=== PATIENT | male | born 1930 | race Caucasian/White ===

== ENCOUNTER → 2017-10-04 | Outpatient (CLI) | payer MEDICARE ==
--- NOTE | 2017-10-04 16:29 | Diagnostic Imaging Report ---
PROCEDURE: Frontal and lateral views of the chest. COMPARISON: Patients [facility], , CHEST 2 VIEWS, 11/16/2015, 9:46. INDICATIONS: COUGH FINDINGS: Lines/tubes: None. Lungs: The lungs are well inflated and clear. There is no evidence of pneumonia or pulmonary edema. Pleura: There is no pleural effusion or pneumothorax. Biapical pleural scarring. Heart and mediastinum: The cardiac silhouette is mildly enlarged. Mild calcifications of the aortic arch. Bones: No acute bony abnormality. Spondylosis of the thoracic spine. IMPRESSION: 1. Mild enlargement of the cardiac silhouette. Jacky Barron M.D. Dictated by: Jacky Barron M.D. on 10/04/2017 at 16:37 Electronically approved by: Jacky Barron M.D. on 10/04/2017 at 16:37
== END ==
LOC: RAD 14:53
PROVIDERS: ATTEND Family Medicine
DX: J90 Pleural effusion, not elsewhere classified (principal)
CPT/HCPCS: 71020

== ENCOUNTER 2019-06-25 10:08 | Inpatient (IN) | payer MEDICARE ==
[~2019-06-25] VITALS: Ht 177.8 cm; Wt 83.9 kg
[~2019-06-25 10:08] MED LIST: FENOFIBRIC ACI105 MG PO; FERROUS SULFAT325 MG PO; FUROSEMIDE40 MG PO; GLIMEPIRIDE2 MG PO; HUMULIN N100 UNITS/ SC; HUMULIN R100 UNIT/2 SC; PLAVIX75 MG PO
--- OUTSIDE RECORDS SUMMARY | 2019-06-25 10:10 | XMS REPORT ---
Author [facility] Address Unknown Phone Unavailable Care Team Providers Care Print Designer Name Role Phone DALE BARRIOS Unavailable Unavailable Problems This patient has no known problems. Allergies, Adverse Reactions, Alerts This patient has no known allergies or adverse reactions. Medications This patient has no known medications. Results Test Description Test Time Test Comments Text Results Atomic Results Result Comments CHEST 2 VIEWS [place] [address] Patient Name: LES FELIPE MR #: [id number] : 1930 Age/Sex: 87/M Req #: [id number] Adm Physician: Ordered by: SOPHIE RUSSO, DALE Webb MD Report #: [id number] Location: RAD Room/Bed: Procedure: [id number] DX/CHEST 2 VIEWS Exam Date: 10/04/17 Exam Time: 1500 REPORT STATUS: Signed PROCEDURE: Frontal and lateral views of the chest. COMPARISON: [facility], DX, CHEST 2 VIEWS, 11/16/2015, 9:46. INDICATIONS: COUGH FINDINGS: Lines/tubes: None. Lungs: The lungs are well inflated and clear. There is no evidence of pneumonia or pulmonary edema. Pleura: There is no pleural effusion or pneumothorax. Biapical pleural scarring. Heart and mediastinum: The cardiac silhouette is mildly enlarged. Mild calcifications of the aortic arch. Bones: No acute bony abnormality. Spondylosis of the thoracic spine. IMPRESSION: 1. Mild enlargement of the cardiac silhouette. Jacky Jenkins M.D. Dictated by: Jacky Jenkins M.D. on 10/04/2017 at 16:37 Electronically approved by: Jacky Jenkins M.D. on 10/04/2017 at 16:37 Dictated By: DUDLEY JENKINS MD, MD 36 Transcribed By: RAHUL on 10/04/177 COPY TO: DALE BARRIOS
[2019-06-25 10:29] LABS: BASOPHILS % 0.3 % (0.0-1.0); EOSINOPHILS % 0.6 % (0.0-6.0); HEMATOCRIT 22.6 % (38.2-49.6); HEMOGLOBIN 7.2 g/dL (14.0-18.0); LYMPHOCYTES # (AUTO) 0.2 (1.0-3.2); LYMPHOCYTES % 6.2 % (18.0-39.1); MEAN CORPUSCULAR HEMOGLOBIN 32.9 pg (28-32); MEAN CORPUSCULAR HGB CONC 31.9 g/dL (31-35); MEAN CORPUSCULAR VOLUME 103.2 fL (81-99); MONOCYTES # (AUTO) 0.1 (0.2-0.8); MONOCYTES % 3.8 % (4.4-11.3); NEUTROPHILS % 88.5 % (38.7-80.0); PLATELET COUNT 312 x10e3/uL (140-360); RED BLOOD COUNT 2.19 x10e6/uL (4.3-5.7); RED CELL DISTRIBUTION WIDTH 18.4 % (11.7-14.4)
[2019-06-25 10:51] LABS: ALBUMIN 2.6 g/dL (3.5-5.0); ALBUMIN/GLOBULIN RATIO 0.7 (0.8-2.0); CALCIUM 8.6 mg/dL (8.4-10.2); CREATININE, SERUM 2.35 mg/dL (0.72-1.25)
[2019-06-25 11:10] LABS: INR 1.15; PROTHROMBIN TIME 15.3 seconds (11.9-14.5)
[2019-06-25 12:00] VITALS: BP 117/69
[2019-06-25] MEDS ORDERED: ACETAMINOPHEN 325 MG TAB PO PRN (13:00)
[2019-06-25] MEDS ORDERED: ONDANSETRON HCL INJ 2MG/ML 2ML 2 MG/ML VIAL IV PRN (13:00)
[2019-06-25] MEDS ORDERED: DEXTROSE 50% SYRINGE 50 ML IV PRN (13:30)
--- NOTE | 2019-06-25 13:38 | Diagnostic Imaging Report ---
EXAMINATION: CHEST SINGLE (PORTABLE) INDICATION: Dysphagia COMPARISON: None FINDINGS: LINES/TUBES:None LUNGS:The lungs are well-inflated. No focal consolidation or pulmonary edema. PLEURA:No pleural effusion or pneumothorax. MEDIASTINUM:The cardiomediastinal silhouette is mildly enlarged. Atherosclerotic calcifications of the thoracic aorta. BONES/SOFT TISSUES:No acute osseous injury. ABDOMEN:No free air under the diaphragm. IMPRESSION: No focal pneumonia or pulmonary edema. Mild cardiomegaly. Signed by: Omer Nicolas MD on 06/25/2019 1:34 PM
--- NOTE | 2019-06-25 14:06 | Diagnostic Imaging Report ---
EXAM: CT Chest, Abdomen and Pelvis WITHOUT intravenous contrast INDICATION: Dysphagia, anemia COMPARISON: Chest radiograph of earlier the same day TECHNIQUE: The chest, abdomen and pelvis were scanned utilizing a multidetector helical scanner from the thoracic inlet to the pubic symphysis without administration of IV contrast. Coronal and sagittal reformations were obtained. IV CONTRAST: None ORAL CONTRAST: Water COMPLICATIONS: None RADIATION DOSE: Total DLP: 880.6 mGy*cm Dose modulation, iterative reconstruction, and/or weight based adjustment of the mA/kV was utilized to reduce the radiation dose to as low as reasonably achievable. FINDINGS: LINES/ TUBES: None. LUNGS AND AIRWAYS: The central airways are patent. No focal consolidation or pulmonary edema. Minimal biapical pleural parenchymal thickening/scarring. No suspicious pulmonary nodules. PLEURA: Trace left pleural effusion. No pneumothorax. HEART AND MEDIASTINUM: The thyroid gland is normal. No supraclavicular lymphadenopathy. An enlarged AP window lymph node measures up to 2.5 x 1.6 cm. No hilar lymphadenopathy. No axillary or internal mammary lymphadenopathy. The heart is not enlarged. No pericardial effusion. Diffuse atherosclerotic calcifications involve the coronary arteries, aorta and great vessels. HEPATOBILIARY: The centimeter left hepatic hypodensity is nonspecific but likely represents a cyst. Several scattered punctate calcified granulomas. No other focal liver lesions. 2.2 cm calcified gallstone. No CT evidence of cholecystitis. SPLEEN: No splenomegaly. PANCREAS: No focal masses or ductal dilatation. ADRENALS: No adrenal nodules. KIDNEYS/URETERS: 3 mm right upper pole nonobstructive renal calculus. No left calculi. No hydronephrosis. 1.7 cm exophytic right midpole hypodense structure most likely represents a cyst. Mild nonspecific bilateral perirenal soft tissue stranding. PELVIC ORGANS/BLADDER: Decompressed bladder. Coarse calcifications of the nonenlarged prostate. PERITONEUM / RETROPERITONEUM: No free air or fluid. LYMPH NODES: Prominent subcentimeter para-aortic lymph nodes do not meet size criteria for lymphadenopathy. VESSELS: Diffuse atherosclerotic calcifications involve the nonaneurysmal abdominal aorta and major branches. GI TRACT: Severe sigmoid diverticulosis and moderate ascending colon diverticulosis. Mild descending colon diverticulosis. No CT evidence of diverticulitis. BONES AND SOFT TISSUES: Small fat-containing umbilical hernia. Small bilateral right greater than left fat-containing inguinal hernias. Diffuse muscle atrophy. Degenerative changes of the visualized spine. No acute osseous injury. No suspicious lytic or blastic lesions. IMPRESSION: Enlarged AP window lymph node measuring up to 2.5 x 1.6 cm. Retroperitoneal periaortic lymph nodes are prominent but do not meet size criteria for lymphadenopathy. Diffuse atherosclerotic arterial calcifications including of the coronary arteries. Cholelithiasis without CT evidence of cholecystitis. Extensive diverticulosis including right colon diverticulosis without CT evidence of diverticulitis. Signed by: Omer Nicolas MD on 06/25/2019 2:03 PM
[2019-06-25 14:37] VITALS: BP 117/69
[2019-06-25] MEDS ORDERED: SODIUM CHLORIDE 0.9% 250ML 250 ML IV ONE (15:00)
[2019-06-25 16:00] VITALS: BP 116/67
[2019-06-25] MEDS: FAMOTIDINE 20 MG/2 ML VIAL IV SCH (16:34)
[2019-06-25] MEDS: FUROSEMIDE INJ 10 MG/ML 2 ML VIAL IV SCH (16:34)
[2019-06-25 16:53] LABS: HEMATOCRIT 22.1 % (38.2-49.6)
[2019-06-25 17:01] LABS: HEMOGLOBIN 6.9 g/dL (14.0-18.0)
[2019-06-25] MEDS: INSULIN REGULAR, HUMAN 100 UNIT/1 ML 3ML VIAL SQ SCH ×2 (17:04→21:15)
--- NOTE | 2019-06-25 18:30 | NUR ---
1 unit of leuko-reduced RBC's started infusing at 1830.
--- NOTE | 2019-06-25 18:44 | History and Physical ---
PRIMARY CARE PHYSICIAN: Dr. Jaycob Parker. CHIEF COMPLAINT: Anemia. CONSULTING PHYSICIANS: Dr. Cuevas with GI, Dr. Nadine Franco with Cardiology. HISTORY OF PRESENT ILLNESS: This is an 89-year-old male with past medical history of hypertension, diabetes, high cholesterol, CKD 4, lymphedema, and CAD, presented to the ER after having being to his primary care doctor's office yesterday for blood work, which showed a hemoglobin of 6.9, so he was instructed to go to the ER for blood transfusion and further workup. Per patient, he was feeling shortness of breath with exertion, generalized weakness and dizziness for the past few weeks. He denies any nausea, vomiting, chest pain, melena, hematemesis. He reports having dysphagia, unable to swallow his pills for the past two months now. He was referred to Dr. Cuevas for endoscopy, which was supposed to be done tomorrow. Currently, he denies any pain, shortness of breath or dizziness. PAST MEDICAL HISTORY: 1. Hypertension. 2. Diabetes type 2. 3. High cholesterol. 4. CKD 4. 5. Lymphedema with the right greater than the left. 6. CAD, status post three stents. SURGICAL HISTORY: 1. Hernia repair. 2. Spinal surgery. 3. Bilateral hand for carpal tunnel. 4. Cardiac stents x3. 5. Cataract for both eyes. 6. Tonsillectomy as a child. FAMILY MEDICAL HISTORY: Mother of pneumonia at old age and father a year later at age of 86 in his sleep. SOCIAL HISTORY: Denies tobacco use or illicit drug use. He reports was drinking vodka daily up until two months ago. ALLERGIES: NO KNOWN ALLERGIES. REVIEW OF SYSTEMS: GENERAL: No fever. HEENT: No trauma to the head. No mouth sores. LUNGS: No shortness of breath or cough. CARDIOVASCULAR: No palpitations or chest pain. GI: Difficulty swallowing. No nausea, vomiting, or melena. NEURO: Dizziness with ambulation. MUSCULOSKELETAL: Bilateral lower extremity edema and blisters. SKIN: Lower extremity mild redness and oozing from lymphedema. PHYSICAL ASSESSMENT: VITAL SIGNS: Temperature is 98.5, pulse is 93, respirations 18, blood pressure is 98/57, and pulse ox is 98% on room air. GENERAL: No acute distress. HEENT: Normocephalic, atraumatic. PERRLA. LUNGS: Clear to auscultation. CARDIOVASCULAR: Regular rate and rhythm. GI: Obese, soft and nontender. NEURO: Alert, awake, oriented x3. MUSCULOSKELETAL: Moves all extremities. Bilateral lower extremity edema noted to lymphedema. SKIN: He has right heel blister cleared likely due to lymphedema. PSYCH: Normal affect. LABORATORY DATA: WBC is 3.39, hemoglobin is 7.2, hematocrit is 22.6, MCV is 103.2, and platelet is 312. Sodium is 133, potassium is 4.0, BUN is 55, creatinine is 2.35, estimated GFR is 26, glucose is 260. PT is 15.3, INR is 1.15, APTT is 33.1. IMPRESSION AND PLAN: 1. Symptomatic anemia, was 6.9 at his doctor's office, now 7.2. He reported shortness of breath and dizziness with ambulation. We will transfuse 1 unit of PRBCs. GI has been consulted and plans EGD tomorrow. 2. Hypertension, currently hypotensive, likely due to anemia. We will hold his blood pressure medications for now. 3. Diabetes type 2. We will give sliding scale insulin as needed. 4. Chronic kidney disease 4. Creatinine is 2.35. We will continue to monitor closely. 5. Coronary artery disease. We will continue home medications. We will hold anticoagulation due to anemia. 6. High cholesterol. We will resume statin tomorrow. 7. Lymphedema and oozing liquid. We will continue Lasix IV b.i.d. 8. History of alcohol use. We will continue since his last use. We will monitor for now. We will keep Pepcid b.i.d. IV. 9. Deep vein thrombosis prophylaxis. We will hold anticoagulation due to anemia. We will obtain a chest x-ray, CT chest and abdomen and pelvis to rule out malignancy. Echo is also pending for cardiac workup. The patient has been cleared from Cardiology for EGD tomorrow. Dictated by BEN Hernandez Katching Jackson Vela MD MY/MODL /[id number]
[2019-06-25] MEDS ORDERED: FUROSEMIDE INJ 10 MG/ML 4 ML VIAL IV ONE (19:15)
--- NOTE | 2019-06-25 19:19 | NUR ---
Received bedside report from day nurse. Patient resting in bed, alert and oriented, currently receiving 1 unit of blood. Stable vital signs, no s/s of adverse effects at this time. All safety measures in place. Will continue to monitor.
--- NOTE | 2019-06-25 19:55 | NUR ---
Per Dr. Vela's notes and day nurse report, patient has been cleared by cardiology for EGD tomorrow. No orders for EGD have been noted. Paged Dr. Cuevas to confirm order, currently awaiting return call. Patient doing well with blood transfusion, no adverse effects noted. All safety measures in place. Will continue to monitor.
--- NOTE | 2019-06-25 20:11 | NUR ---
Received orders from Dr. Cuevas for EGD procedure tomorrow.
[2019-06-25 20:17] VITALS: BP 124/68
--- NOTE | 2019-06-25 21:30 | Consultation ---
DATE OF CONSULTATION: 06/25/2019 CONSULTING PHYSICIAN: Marisa Balbuena M.D. REASON FOR CONSULT: Unexplained anemia, GI source needs to be ruled out. HISTORY OF PRESENTING ILLNESS: An 89-year-old very pleasant white male, who has a very good performance status. He has a history of type 2 diabetes (insulin-dependent), hyperlipidemia, and coronary artery disease, status post PCI with coronary stents, on Plavix only. He has a bilateral lower extremity lymphedema. He also has a chronic anemia. For the last couple of months, he has been having trouble swallowing solid food. Solid food often gets stuck down in the lower esophagus. He was seen by Dr. Cuevas (my associate)/video surveillance technician in his office couple of days ago. The patient is already scheduled to get upper endoscopy with possible esophageal dilation tomorrow. However, preprocedure blood workup revealed significant anemia with a hemoglobin of 7.2. Baseline hemoglobin in March was 10. No gross GI bleeding is reported by the patient. He has never noticed any dark stool. No episode of any hematemesis or hematochezia. Due to low hemoglobin, he was contacted by his primary service to get admitted in the hospital for blood transfusion. He therefore came to the emergency room yesterday. He is now on the floor. The patient otherwise denies any lower GI symptoms. REVIEW OF SYSTEMS: Twelve-point system reviewed, symptomatology is limited as per HPI. PAST MEDICAL HISTORY: Type 2 diabetes, bilateral lower extremity lymphedema, coronary artery disease, hyperlipidemia, osteoarthritis, and chronic anemia. PAST SURGICAL HISTORY: Bilateral carpal tunnel repair, inguinal hernia repair, back surgery, tonsillectomy, and cardiac catheterization with coronary stents. FAMILY HISTORY: Noncontributory given his advanced age. SOCIAL HISTORY: No smoking, alcohol, or any illicit drug use. HOME MEDICATIONS: 1. Clopidogrel. 2. Fenofibrate. 3. Ferrous sulfate. 4. Furosemide. 5. Glimepiride, regular insulin. ALLERGIES: NO KNOWN DRUG ALLERGIES. PHYSICAL EXAMINATION: VITAL SIGNS: Temperature 96.2, pulse 85, respirations 20, blood pressure 116/67, and oxygen saturation 98% on room air. GENERAL: Elderly, frail, but not in any acute distress. Gross pallor. HEENT: Moist mucous membranes. Anicteric sclerae. CVS: S1 and S2 regular with a 3/6 flow murmur at the apex. LUNGS: Bilaterally grossly clear. ABDOMEN: Soft, protuberant belly, nondistended, and nontender. No palpable mass or hernia. Positive bowel sounds. EXTREMITIES: 3+ pitting bilateral leg edema. LABORATORY DATA: WBC 3.39, hemoglobin 7.2, repeat hemoglobin 6.9; hematocrit 22.6, MCV 103.2, and platelet count 312. Sodium 133, potassium 4.0, chloride 98, bicarb 24, BUN 55, and creatinine 2.35. Baseline creatinine 1.24, which was in 2010. CT of the abdomen and pelvis without contrast showed diffuse atherosclerotic disease, cholelithiasis, extensive colonic diverticulosis, enlarged AP window lymph node measuring up to 2.5 x 1.6 cm. Retroperitoneal periaortic lymph nodes are prominent, but do not meet size criteria for lymphadenopathy. IMPRESSION: 1. Anemia of unclear etiology. As per the patient's family, baseline hemoglobin was 10 in March. It dropped down to 6.9. No gross gastrointestinal bleeding. 2. Intermittently persistent nonprogressive esophageal dysphagia to solid. PLAN: Anemia workup that should include checking stool for Hemoccult blood, anemia profile. Transfuse packed red blood cells as necessary to keep the hemoglobin at least above seven. Cardiology also evaluated the patient and has cleared for the procedure. Therefore, if the hemoglobin remains above seven, the patient will undergo EGD plus-minus esophageal dilation as scheduled. Aram Ulloa MD SA/LARA /[id number]
[2019-06-25 21:31] VITALS: BP 124/68
--- NOTE | 2019-06-25 22:10 | Consultation ---
DATE OF CONSULTATION: Cardiac Consultation REASON FOR CONSULTATION: Cardiac evaluation. HISTORY OF PRESENT ILLNESS: An 89-year-old gentleman, who is known with coronary artery disease status post PCI of the right coronary artery in 2003, hypercholesterolemia, hypertension, diabetes mellitus, chronic renal insufficiency stage 3 to stage 4, chronic leg swelling of the lower extremities, followed by [facility] and he used to come to see us. Last time seen in our office approximately 3 years ago. The patient maintained on medical therapy. The patient for the last few months having problem with swallowing. In fact, he is unable to get any solid food at all. He just takes the juice of the solid food and then he needs to spit it because it stuck in his esophagus. He lost weight. He noted more swelling of his lower extremities and he is developing abdominal distention. He is having easy fatigability and he is becoming quite debilitated. He denied having any chest pain. He was seen by Dr. Cuevas. His hemoglobin was at 6. He is advised to come to the emergency room. In the emergency room, his hemoglobin was at 7. His BUN and creatinine are at 55 and 2.4. He was having abdominal distention and marked swelling of the lower extremities. He does have shortness of breath. He denied having any chest pain. The patient is considered for EGD, colonoscopy possibly and he needs to have cardiac evaluation. The patient's activities are limited. In fact, he is going down for the last few months. He is barely can move around. He is having swelling of the lower extremities, fatigability, shortness of breath on exertion, weight loss, inability to eat solid food progressively worse. The food "got stuck in his esophagus." He does have easy fatigability, insomnia, and sleeplessness night at time. "I am not doing well." HOME MEDICATIONS: Include Plavix 75 mg a day, Fenofibrate 135 mg a day, iron sulfate one tablet a day, Lasix 40 mg a day, and insulin 20 units at bedtime. ALLERGIES: NONE. PAST MEDICAL HISTORY: 1. Coronary artery disease, status post PCI in 2003, Cypher stent. 2. Hypertension. 3. Hypercholesterolemia. 4. Diabetes mellitus with severe end-organ damage. 5. Peripheral arterial vascular disease. 6. Chronic swelling of the lower extremities. 7. Chronic renal insufficiency. 8. Left inguinal hernia surgery. 9. Tonsillectomy. 10. Back surgery. 11. Bilateral cataract surgery. 12. Carpal tunnel surgery. SOCIAL HISTORY: . He is a nonsmoker, however, he used to drink alcohol, now he denied drinking any alcohol. FAMILY HISTORY: Father at age 86, passed in his sleep. Mother at age 86 of old age. Two siblings and three children, one son of overdose. REVIEW OF SYSTEMS: GENERAL: Poor general status of health, weight gain of fluid, poor appetite. No fever. No chills. HEENT: Decreased hearing. PULMONARY: Easy fatigability, shortness of breath on minimal exertion. CARDIAC: No angina, but easy fatigability and shortness of breath on exertion, legs swelling as described above. GI: Inability to swallow any solid food for the last few months, progressively worse. He denied having any hematemesis or any melena. He admits to distended abdomen and bowel movement difficulty. HEMATOLOGY: No easy bruising or bleeding. : No hematuria. No dysuria. MUSCULOSKELETAL: Bilateral back pain and lower extremities. Marked edema of the lower extremities. NEUROLOGIC: No localized deficit, but severe weakness. PHYSICAL EXAMINATION: VITAL SIGNS: Height of 5 feet 10 inches and weight of 182 pounds. Blood pressure 130/60, heart rate of 60, and respiratory rate of 18. HEENT: Pupils are reactive. It was noted pale conjunctiva. NECK: No elevation of jugular venous pulsation. CHEST: Decreased air entry. HEART: PMI 5th left intercostal space. Normal first and second heart sounds. ABDOMEN: Distended. Hepatomegaly is noted. EXTREMITIES: Marked edema of the lower extremities. LABORATORY DATA: White blood cell count of 3.4, hemoglobin 7.2, hematocrit 23%, and platelet count of 312. BUN of 55, creatinine of 2.4, sodium of 133, potassium of 4, and glucose of 260. IMPRESSION AND PLAN: 1. Severe anemia. 2. Difficulty swallowing of solid, rule out Esophageal mortality problems or cancer. 3. Marked edema with distended abdomen, possible liver disease, possible malignancy with metastasis. 4. Coronary artery disease. 5. Status post prior PCI. 6. Congestive heart failure. 7. Chronic kidney disease. 8. Hypercholesterolemia. 9. Diabetes mellitus with severe end-organ damage including renal and possible nephropathy/ Protein urea. From a cardiac point of view, I discussed the patient with his and his daughter. He is cleared for EGD. Because of the patient's symptoms, we need to figure out what the etiology for that and this now seems to be priority. From a cardiac point of view, we will do an echocardiogram. We will observe his volume status. We will check chest x-ray. We will do an echocardiogram. We will check urine for protein. We will check his labs tomorrow. We will check BMP on him. We will follow the patient's progression with you. This was lengthy visit. The patient is seen and evaluated in ER. Questions answered. Prognosis seems to be poor. MD CLOVER Mcnally/LARA /[id number] MTDD
--- NOTE | 2019-06-25 22:15 | NUR ---
Transfusion of 1 unit of blood completed @ 2114. No adverse effects noted. All safety measures in place. Will continue to monitor.
[2019-06-25 23:20] VITALS: BP 104/56
[2019-06-26] VITALS (8 sets, daily range): BP systolic 97–125; BP diastolic 57–91
--- NOTE | 2019-06-26 06:46 | NUR ---
Gave bedside report to day nurse. Patient awake and sitting up in bed, no s/s of distress or c/o pain at this time. All safety measures in place.
--- NOTE | 2019-06-26 07:00 | NUR ---
RECEIVED AM REPORT AND MORNING ROUNDS DONE. PT IS ALERT RESTING IN BED, NO S/S OF DISTRESS. PT IS NPO FOR PLANNED EGD THIS MORNING. CALL LIGHT IS WITHIN REACH AND INSTRUCTED PT TO CALL NURSE FOR HELP.
[2019-06-26 07:10] LABS: BASOPHILS % 0.6 % (0.0-1.0); EOSINOPHILS % 0.3 % (0.0-6.0); HEMATOCRIT 26.2 % (38.2-49.6); HEMOGLOBIN 8.2 g/dL (14.0-18.0); LYMPHOCYTES # (AUTO) 0.3 (1.0-3.2); LYMPHOCYTES % 8.4 % (18.0-39.1); MEAN CORPUSCULAR HEMOGLOBIN 31.3 pg (28-32); MEAN CORPUSCULAR HGB CONC 31.3 g/dL (31-35); MONOCYTES # (AUTO) 0.1 (0.2-0.8); MONOCYTES % 4.2 % (4.4-11.3); NEUTROPHILS # (AUTO) 2.7 (2.1-6.9); NEUTROPHILS % 86.2 % (38.7-80.0); PLATELET COUNT 317 x10e3/uL (140-360); RED BLOOD COUNT 2.62 x10e6/uL (4.3-5.7)
[2019-06-26 07:28] LABS: ALBUMIN 2.7 g/dL (3.5-5.0); ALBUMIN/GLOBULIN RATIO 0.7 (0.8-2.0); ANION GAP 16.5 mmol/L (8-16); CALCIUM 8.7 mg/dL (8.4-10.2); CREATININE, SERUM 2.22 mg/dL (0.72-1.25); POTASSIUM 3.5 mmol/L (3.5-5.1)
[2019-06-26] MEDS: INSULIN REGULAR, HUMAN 100 UNIT/1 ML 3ML VIAL SQ SCH ×4 (07:30→21:00)
--- NOTE | 2019-06-26 07:45 | NUR ---
LAB REPORTED GLUCOSE LEVEL OF 57. ADMINISTERED 1 AMP OF DEXTROSE 50% AT 0745. AT 0805 BLOOD GLUCOSE WAS RECHECKED AT BEDSIDE AND IT WAS 209
[2019-06-26] MEDS: FUROSEMIDE INJ 10 MG/ML 2 ML VIAL IV SCH ×2 (07:56→18:50)
[2019-06-26] MEDS: FAMOTIDINE 20 MG/2 ML VIAL IV SCH ×2 (07:56→17:16)
[2019-06-26 08:00] LABS: FERRITIN 53.99 ng/mL (21.81-274.66)
[2019-06-26 13:09] LABS: FOLATE 6.3 ng/mL (7.0-15.4)
--- NOTE | 2019-06-26 15:14 | NUR ---
WOUNDCARE CONSULT FOR 89 YO M HX OF DIABETES ,ANIEMIA , LE EDEMA AND REOCCURRING WOUNDS PRATIMA 19 WITH CONSERVATIVE PUP ON VISCO MATTRESS LABS: WBC-3 HGB- 8.2 ASSESSMENT: SKIN ASSESSMENT PERFORMED WOUNDS DOCUMENTED ON WOUND FLOW SHEET RT HEEL PRESENTS WITH DARK BLISTER REPORTED BY PATIENT AND FAMILY SECONDARY TO BUMPING HEEL AND LATER USAGE OF COMPRESSION SOCKS THAT MAY HAVE FIT TOO TIGHT SURROUNDING SKIN DRY AND INTACT PT ALSO PRESENTS WITH BILATERAL LE EDEMA WITH WEEPING OF SEROUS DRAINAGE PT ALSO HAS STAGE 2 ULCERATION RIGHT BUTTOCK THAT REPORTS HAS BEEN THERE FOR A COUPLE OF WEEKS SURROUNDING TISSUE PINK AND BLANCHABLE PT AND FAMILY EDUCATED ON NEED FOR TURNING AND OFFLOADING RECOMMENDATIONS: NURSING TO CONTINUE TO PROTECT AND OFFLOAD PATIENT AND FOLLOW PUP PROTOCOL NURSING TO MAINTAIN PT ON ALTERNATING PRESSURE MATTRESS POTENTIAL FOR PATIENT TO BENEFIT FROM NICO EVALUATION RELATED TO CHRONIC EDEMA AND WEEPING WITH SPONTANEOUS OPEN AREAS NURSING TO USE PILLOW SUSPENSION OF HEELS WHILE IN BED NURSING TO ENCOURAGE PATIENT OUT OF BED FOR MEALS AND MUCH TOLERATED NURSING TO APPLY VENELEX OINTMENT DAILY TO PATIENT RT HEEL BLISTER COVER WITH ALLEVYN FOAM FOR SHEER PROTECTION NURSING TO APPLY VENELEX OINTMENT DAILY TO PATIENT RT BUTTOCK STAGE 2 ULCER COVER WITH ALLEVYN FOAM FOR SHEER PROTECTION Addendum: 06/26/19 at 1536 by Joni Guadalupe RN Amended: Links added.
[2019-06-26] MEDS ORDERED: CYANOCOBALAMIN INJ 1,000 MCG/ML VIAL IM ONE (16:45)
[2019-06-26] MEDS: CARVEDILOL 3.125 MG TAB PO SCH (17:17)
[2019-06-26] MEDS ORDERED: IRON SUCROSE 100 MG in SODIUM CHLORIDE 0.9% 100 ML 100 ML IV ONE (17:30)
--- NOTE | 2019-06-26 18:27 | Progress Note ---
DATE: CHIEF COMPLAINT: Anemia and dysphagia. SUBJECTIVE: The patient underwent EGD this morning, which showed mid esophagus ulcer, large. Biopsies taken, tolerating pureed diet post EGD. Hemoglobin is improved to 8.2 today post transfusion of 1 unit of PRBC. No shortness of breath, fever, or chills. PHYSICAL EXAMINATION: VITAL SIGNS: Temperature 97.8, pulse is 92, respirations 19, blood pressure 107/81, pulse ox is 99% on room air. GENERAL: No acute distress. HEENT: Normocephalic, atraumatic. LUNGS: Clear to auscultation. CARDIOVASCULAR: Normal rate and rhythm. ABDOMEN: Soft and nontender. Active bowel sounds. NEURO: Alert, awake, oriented x3. MUSCULOSKELETAL: Bilateral lower extremity edema. SKIN: Has a blister on the right heel due to lymphedema. PSYCH: Normal affect. LABORATORY DATA: WBC 3.09, hemoglobin 8.2, hematocrit 26.2, platelets 317. Sodium 138, potassium 3.5, creatinine 2.22, estimated GFR is 28. Iron is 51, B12 is 299, folate is 6.3. IMAGING: CT abdomen and pelvis showed enlarged lymph nodes measuring about 2.5 x 1.6 cm, cholelithiasis without cholecystitis and extensive diverticulosis without acute diverticulitis. Chest x-ray is unremarkable. IMPRESSION AND PLAN: 1. Symptomatic anemia due to GI bleed, status post 1 unit of PRBC transfusion. Hemoglobin is now 8.2. GI has been consulted and underwent EGD, which showed mid esophagus ulcer, large, biopsied. Recommend sucralfate before meals and at bedtime. 2. Hypertension. We will hold his blood pressure medications for now and treat as needed. 3. Diabetes, type 2. We will check his hemoglobin A1c and treat as needed with sliding scale insulin. 4. Iron deficiency anemia. We will give Venofer. 5. Chronic kidney disease, stage 4. Creatinine 2.2. We will continue to monitor closely. Lasix changed to IV b.i.d. 6. History of coronary artery disease. We will continue home medications. We will hold anticoagulation due to anemia until cleared by GI. 7. High cholesterol. We can resume statin. 8. Lymphedema. We will continue with Lasix. Wound Care has been consulted for the blister in the right heel. 9. History of alcohol use, has been 2 months since his last use. We will continue with Pepcid. 10. Deep vein thrombosis prophylaxis. We will hold chemical anticoagulation due to anemia. PLAN: We will give Venofer IV x1 today and vitamin B12. We will continue to monitor H and H closely and transfuse if hemoglobin is less than 7. Anticipate discharge home tomorrow if hemoglobin remains stable. Dictated by Jacki Tolliver, BEN Marianne Vlea MD MY/MODL /[id number]
[2019-06-26] MEDS ORDERED: PROPOFOL IV EMULSION 10 MG/ML 50 ML VIAL ONE (18:40)
[2019-06-26] MEDS: SUCRALFATE 1 GM/10 ML SUSP PO SCH (20:22)
[2019-06-27 04:15] VITALS: BP 114/75
[2019-06-27 05:59] LABS: BASOPHILS % 0.9 % (0.0-1.0); EOSINOPHILS % 0.9 % (0.0-6.0); HEMATOCRIT 25.6 % (38.2-49.6); HEMOGLOBIN 8.1 g/dL (14.0-18.0); LYMPHOCYTES # (AUTO) 0.3 (1.0-3.2); LYMPHOCYTES % 12.4 % (18.0-39.1); MEAN CORPUSCULAR HEMOGLOBIN 31.8 pg (28-32); MEAN CORPUSCULAR HGB CONC 31.6 g/dL (31-35); MEAN CORPUSCULAR VOLUME 100.4 fL (81-99); MONOCYTES # (AUTO) 0.1 (0.2-0.8); MONOCYTES % 4.3 % (4.4-11.3); NEUTROPHILS # (AUTO) 1.9 (2.1-6.9); NEUTROPHILS % 81.1 % (38.7-80.0); PLATELET COUNT 304 x10e3/uL (140-360); RED BLOOD COUNT 2.55 x10e6/uL (4.3-5.7); RED CELL DISTRIBUTION WIDTH 19.9 % (11.7-14.4)
[2019-06-27 06:18] LABS: ALBUMIN 2.4 g/dL (3.5-5.0); ALBUMIN/GLOBULIN RATIO 0.6 (0.8-2.0); ANION GAP 16.3 mmol/L (8-16); CALCIUM 8.4 mg/dL (8.4-10.2); CHOL/HDL RATIO 4.5 (3.9-4.7); CREATININE, SERUM 2.34 mg/dL (0.72-1.25); POTASSIUM 4.3 mmol/L (3.5-5.1)
[2019-06-27 06:30] LABS: THYROID STIMULATING HORMONE 1.005 uIU/mL (0.350-4.940)
--- NOTE | 2019-06-27 07:00 | NUR ---
received am report and morning rounds done. pt is alert sitting up on the edge of bed, no s/s of distress. call light within reach and instructed pt to call nurse for help
[2019-06-27] MEDS: INSULIN REGULAR, HUMAN 100 UNIT/1 ML 3ML VIAL SQ SCH ×2 (07:30→12:00)
[2019-06-27] MEDS: SUCRALFATE 1 GM/10 ML SUSP PO SCH ×2 (07:52→12:07)
[2019-06-27 08:00] VITALS: BP 115/60
[2019-06-27] MEDS: CARVEDILOL 3.125 MG TAB PO SCH (08:59)
[2019-06-27] MEDS: FAMOTIDINE 20 MG/2 ML VIAL IV SCH (08:59)
[2019-06-27] MEDS: FUROSEMIDE INJ 10 MG/ML 2 ML VIAL IV SCH (08:59)
[2019-06-27] MEDS ORDERED: BALSAM PERU/CASTOR OIL 60 GM OINT...G. TP SCH (09:00)
[2019-06-27 09:44] VITALS: BP 115/60
[2019-06-27 11:55] VITALS: BP 101/55
--- NOTE | 2019-06-27 13:06 | NUR ---
Nutrition Screen Note RD Recommendation for Physician: -Continue current therapeutic diet per MD, texture per speech. -Recommend AUTOM[employer]IC [employer]SM[employer] MECH[employer]IC eval 2/2 pt reporting chewing or swallowing issues and needing a pureed diet. Plan of Care: RD following, monitoring for tolerance and adequacy. Education provided. Glucerna BID for the pt to try. Nutrition reason for involvement: Consult-anemia education Primary Diagnose(s): Anemia PMH: hypertension, diabetes, high cholesterol, CKD 4, lymphedema, and CAD Ht: 70 in Wt: 185 lb BMI: 26.5kg/m2 IBW: [address] Assessment: (06/27) 89 YOM admitted for anemia with PMH listed above. Pt was seen with his and son at his bedside. Received consult for anemia education. Spoke with nurse who reports the MD wanted the RD to give education regarding high iron and high protein foods as well as acute kidney injury education. Provided education on those subjects as well as T2DM to the pt and family. Family verbalized understanding and reported they will help make healthy meals with high iron foods for the pt. Pt is currently on a pureed diet, will recommend AUTOMATIC [employer]SMISS[employer] MECH[employer]IC consult to ensure the pt is consuming the correct consistency of food, the pts family reported he is only on this temporarily d/t his ulcers in his esophagus. Pt had EGD yesterday which showed mid esophagus ulcer, large. Per progress note the pt is tolerating the pureed diet. Recommended the pt try Glucerna supplement at home. Per IM note- d/c home possibly today. Chart reviewed. Labs and meds reviewed. Will continue to monitor. Current Diet: cardiac, 1800 ADA carb controlled diet, pureed Malnutrition Evaluation (06/27) The patient does not meet criteria for a specified degree of malnutrition at this time. Will re-evaluate at follow-up as appropriate. Diet Education Needs Assessment: Diet education indicated, pt and family accepted. Learner(s): pt and family Barriers: none Cultural/Language Modifications: none Readiness: acceptance Method: discussion, handout, teach back Topics: T2DM diet, meal planning, food label, low Na diet, high iron foods, protein foods Understanding/Compliance: verbalized understanding, anticipate good compliance Nutrition Care Level: low Signed: Pattie Vee, RD, LD
--- NOTE | 2019-06-27 13:15 | NUR ---
IMM letter delivered and explained to pt and . They verbalized understanding. Signed copy placed in chart. Copy to pt's .
[2019-06-27] MEDS ORDERED: SUCRALFATE1 G/10 ML PO (13:38)
[2019-06-27] MEDS ORDERED: COREG3.125 MG PO (13:57)
--- NOTE | 2019-06-28 12:31 | Discharge Summary ---
PRIMARY CARE PHYSICIAN: Dr. Keith Devries. FINAL DIAGNOSES: 1. Symptomatic anemia due to gastrointestinal bleed. 2. Hypertension. 3. Diabetes type 2. 4. Iron deficiency anemia. 5. Chronic kidney disease, stage 4. 6. History of coronary artery disease. 7. High cholesterol. 8. Lymphedema. 9. History of alcohol use. 10. Systolic congestive heart failure. ABLE BODIED WATCHMAN: Dr. Cuevas with GI. PROCEDURES: He underwent EGD, which showed large esophagus ulcer, status post biopsy. HISTORY: Per HPI. HOSPITAL COURSE: This is an 89-year-old male, who presented to the ER with symptomatic anemia. Hemoglobin down to 6.9, he was transfused 1 unit of blood. Cardiology was consulted for cardiac clearance. Then, GI performed an EGD, which showed a large ulcer in the esophagus and biopsies taken. Recommended Sucralfate and Protonix. He was also given iron infusions. The patient reports history of dysphagia for the past few months. CT of abdomen and pelvis showed enlarged AP window lymph node, measuring up to 2.5 x 1.6 cm. Cholelithiasis with no evidence of cholecystitis and extensive diverticulosis with no evidence of diverticulitis. Hemoglobin remained stable post transfusion. Hemoglobin is 8.1 today. Tolerating pureed diet. Vital signs stable. We will discharge home to follow up with his PCP and GI for biopsy results on course of treatment. PHYSICAL EXAMINATION: VITAL SIGNS: Temperature 96.8, pulse is 66, blood pressure 101/55, and pulse ox 100% on room air. GENERAL: No acute distress. HEENT: Normocephalic and atraumatic. LUNGS: Clear to auscultation. CARDIOVASCULAR: Normal rate and rhythm. ABDOMEN: Soft and nontender. Obese. NEUROLOGIC: Alert, awake, and oriented x3. MUSCULOSKELETAL: Bilateral lower extremity edema. Right lower extremity with edema due to lymphedema, draining clear fluid. SKIN: Blister on the right heel, has lacerated. No further rash noted. PSYCH: Normal affect. LABORATORY DATA: WBC 2.35, hemoglobin is 8.1, hematocrit is 25.6, and platelet is 304. Sodium is 138, potassium is 4.3, BUN is 56, and creatinine is 2.34. Estimated GFR is 26. Echocardiogram showed ejection fraction of 24% with systolic congestive heart failure. DISCHARGE CONDITION: Improved. DISCHARGE MEDICATIONS: See medication list. FOLLOWUP: Follow up with PCP in 1 week. Follow up with GI in 1 to 2 weeks and Cardiology, Dr. Mccoy in 1 to 2 weeks. Dictated by Jacki Tolliver, BEN Katching MD KIT Smith/LARA /[id number]
== END 2019-06-27 15:15 | disposition home or self-care (01) | DRG 381 ==
LOC: ER 10:08 → ERHOLD 11:43 → MED/SURG2 12:08
PROVIDERS: ADMIT Internal Medicine; ATTEND Internal Medicine
PROC: 30233N1 Transfusion of Nonautologous Red Blood Cells into Peripheral Vein, Percutaneous Approach (ICD-10-PCS; 2019-06-25)
PROC: 0DB28ZX Excision of Middle Esophagus, Via Natural or Artificial Opening Endoscopic, Diagnostic (ICD-10-PCS; principal; 2019-06-26 08:45)
DX: K22.10 Ulcer of esophagus without bleeding (principal); I13.0 Hypertensive heart and chronic kidney disease with heart failure and stage 1 through stage 4 chronic kidney disease, or unspecified chronic kidney disease; I50.22 Chronic systolic (congestive) heart failure; K92.2 Gastrointestinal hemorrhage, unspecified; I10 Essential (primary) hypertension; E11.9 Type 2 diabetes mellitus without complications; E78.00 Pure hypercholesterolemia, unspecified; I89.0 Lymphedema, not elsewhere classified; K22.2 Esophageal obstruction; K44.9 Diaphragmatic hernia without obstruction or gangrene; K29.70 Gastritis, unspecified, without bleeding; N18.9 Chronic kidney disease, unspecified; E11.22 Type 2 diabetes mellitus with diabetic chronic kidney disease; Z79.4 Long term (current) use of insulin
CPT/HCPCS: 36415; 43235; 43239; 71045; 71250; 74176; 80053; 80061; 82607; 82728; 82746; 82948; 83540; 83880; 84443; 85014; 85018; 85025; 85610; 85730; 86850; 86900; 86920; 88305; 88312; 88342; 93005; 93306; 96372; 99284; J1756; J1817; J1940; J3420; J7050; J7799; P9016

== ENCOUNTER 2019-07-10 13:46 | Outpatient (RCR) | payer MEDICARE ==
[~2019-07-10 13:46] MED LIST changes: +COREG3.125 MG PO; +LIDOCAINE/PRILOCAINE 2.5-2.5% KIT ONE; +MUPIROCIN 2% OINT 22 GM TUBE ONE; +SUCRALFATE1 G/10 ML PO
== END 2019-07-17 ==
LOC: WCC 13:46
PROVIDERS: ATTEND Family Medicine Adult Medicine
DX: E11.69 Type 2 diabetes mellitus with other specified complication (principal); I87.332 Chronic venous hypertension (idiopathic) with ulcer and inflammation of left lower extremity; I87.331 Chronic venous hypertension (idiopathic) with ulcer and inflammation of right lower extremity; L97.821 Non-pressure chronic ulcer of other part of left lower leg limited to breakdown of skin; L97.811 Non-pressure chronic ulcer of other part of right lower leg limited to breakdown of skin; S31.829A Unspecified open wound of left buttock, initial encounter; S31.819A Unspecified open wound of right buttock, initial encounter; S51.801A Unspecified open wound of right forearm, initial encounter; S71.001A Unspecified open wound, right hip, initial encounter; S81.002A Unspecified open wound, left knee, initial encounter; S81.001A Unspecified open wound, right knee, initial encounter; I83.12 Varicose veins of left lower extremity with inflammation; I83.11 Varicose veins of right lower extremity with inflammation; R60.0 Localized edema; R60.1 Generalized edema; I87.2 Venous insufficiency (chronic) (peripheral); I89.0 Lymphedema, not elsewhere classified; L01.03 Bullous impetigo; N18.4 Chronic kidney disease, stage 4 (severe); I10 Essential (primary) hypertension; D50.8 Other iron deficiency anemias; E78.00 Pure hypercholesterolemia, unspecified; I50.20 Unspecified systolic (congestive) heart failure; Z74.01 Bed confinement status
CPT/HCPCS: 36415; 82948; 87081